=== PATIENT | female | born 1965 | race Caucasian/White ===

== ENCOUNTER 2023-08-16 11:41 | Emergency (ER) | payer MEDICAID ==
[~2023-08-16] VITALS: Ht 154.9 cm; Wt 111.1 kg
[2023-08-16 11:49] VITALS: BP_SYST 167; PULSE 105; RESP 16; TEMP 97.8; O2SAT 96
[2023-08-16 12:03] LABS: BASOPHILS % (AUTO) 0.5 % (0.0-2.0); EOSINOPHILS # (AUTO) 0.2 K/uL (0.0-0.4); EOSINOPHILS % (AUTO) 1.9 % (0.0-4.0); HEMATOCRIT 42.8 % (36-48); HEMOGLOBIN 14.7 g/dL (12.0-16.0); LYMPHOCYTES # (AUTO) 2.4 K/uL (1.0-5.5); LYMPHOCYTES % (AUTO) 28.6 % (20.5-51.5); MEAN CORPUSCULAR HEMOGLOBIN 30 pg (27-31); MEAN CORPUSCULAR HGB CONC 35 % (32-36); MEAN CORPUSCULAR VOLUME 86 fL (79.0-98.0); MONOCYTES # (AUTO) 0.6 K/uL (0.0-1.0); MONOCYTES % (AUTO) 6.9 % (1.7-9.3); NEUTROPHILS # (AUTO) 5.1 K/uL (1.8-7.7); NEUTROPHILS % (AUTO) 62.1 % (40.0-70.0); PLATELET COUNT (AUTO) 260 K/uL (130-430); RED BLOOD CELL COUNT(AUTO) 4.97 MIL/uL (4.2-6.2); RED CELL DISTRIBUTION WIDTH 13.6 % (9.0-15.0); WHITE BLOOD COUNT (AUTO) 8.2 K/uL (4.8-10.8)
[2023-08-16] MEDS: cloNIDine HCL 0.1 MG TABLET PO ONE (12:10)
[2023-08-16 12:19] LABS: PROTHROMBIN TIME 10.3 SECS (9.5-12.5)
[2023-08-16 12:21] LABS: ALBUMIN 3.6 g/dL (3.4-4.8); BILIRUBIN,DIRECT 0.1 mg/dL (0.0-0.3); CALCIUM 8.8 mg/dL (8.4-11.0); CREATININE 0.92 mg/dL (0.55-1.30); POTASSIUM 3.6 mmol/L (3.5-5.1); TOTAL BILIRUBIN 0.4 mg/dL (0.0-1.0); TOTAL PROTEIN, SERUM 8.1 g/dL (6.4-8.3)
[2023-08-16] MEDS ORDERED: CLON0.2T PO (13:33)
[2023-08-16 13:34] VITALS: BP_SYST 123; PULSE 76; O2SAT 96
== END 2023-08-16 16:18 | disposition home or self-care (01) ==
LOC: SED 11:41
DX: R04.0 Epistaxis (principal); J45.909 Unspecified asthma, uncomplicated
CPT/HCPCS: 36415; 80048; 80076; 85025; 85610; 85730; 99284

== ENCOUNTER 2023-08-18 14:56 | Emergency (ER) | payer MEDICAID ==
[~2023-08-18] VITALS: Ht 154.9 cm; Wt 111.1 kg
[~2023-08-18 14:56] MED LIST: CLON0.2T PO
[2023-08-18 15:04] VITALS: BP_SYST 159; PULSE 86; RESP 18; TEMP 98.6; O2SAT 98
[2023-08-18 15:51] VITALS: BP_SYST 159; PULSE 86; RESP 18; TEMP 98.6; O2SAT 98
== END 2023-08-18 15:50 | disposition home or self-care (01) ==
LOC: SED 14:56
DX: Z48.00 Encounter for change or removal of nonsurgical wound dressing (principal); J45.909 Unspecified asthma, uncomplicated; I10 Essential (primary) hypertension; E66.9 Obesity, unspecified; Z68.42 Body mass index [BMI] 45.0-49.9, adult; Z79.899 Other long term (current) drug therapy
CPT/HCPCS: 99281